=== PATIENT | male | born 1995 | race Caucasian/White ===

== ENCOUNTER 2023-04-13 15:07 | Observation (INO) ==
--- NOTE | 2023-04-13 15:43 | ED Triage Note ---
Date of Service April 13, 2023 Provider in Triage Author: Paz Box History of Present Illness This patient was briefly evaluated while in triage. An abbreviated physical exam was performed. This patient is a 27-year-old male who presents to the ED for evaluation of unusual fatigue and dizziness that started this morning. He has a history of HOCM. Denies other symptoms, just feeling fatigued and had an episode of feeling a bit short of breath at work. Physical Exam VITALS: Vitals are noted on the nurse's note and reviewed by myself. GENERAL: This is a 27-year-old male, in no acute distress, sitting upright in a chair in triage with his eyes closed. SKIN: The skin was without rashes. HEART: Regular rate and rhythm without murmurs gallops or rubs. LUNGS: Clear to auscultation bilaterally without wheezes, rales or rhonchi. NEURO: Patient was alert and oriented to person place and time. Initial orders for labs and / or imaging were placed and patient was placed in the waiting area until a bed is available. Please see further documentation for the full ED course. MDM / Impression Impression Impression: Chest pain, Acute dyspnea, Non-ST elevation [place] (NSTEMI)
[2023-04-13 16:34] LABS: Influenza A virus by PCR Negative (Neg); Influenza B virus by PCR Negative (Neg); RSV by PCR Negative (Neg); SARS CoV2 RNA(COVID-19) Ceph NEGATIVE (Negative)
--- NOTE | 2023-04-13 16:36 | XRay Report ---
SINGLE VIEW CHEST CLINICAL HISTORY: Fatigue. Dyspnea. FINDINGS: A PA chest radiograph is obtained. No prior studies are available for comparison at the anival e of dictation. A single lead cardiac AICD is in place. The cardiomediastinal silhouette is top evelyn l for projection. The lungs and pleural spaces are clear. No pneumothorax is seen. The bony thorax is grossly intact. IMPRESSION: No active disease in the chest. ACT 112: Negative or not required by law. Electronically signed by: Roberto Dangelo M.D. 04/13/2023 4:34 PM
[2023-04-13 18:52] LABS: Basophils # (auto) 0.04 K/uL (0.00-0.20); Basophils % (auto) 0.5 %; Eosinophils # (auto) 0.17 K/uL (0.00-0.50); Eosinophils % (auto) 1.9 %; Hematocrit (blood only) 43.7 % (42.0-52.0); Immature Granulocytes # (auto) 0.05 K/uL (0.01-0.20); Immature Granulocytes % (auto) 0.6 %; Lymphocytes # (auto) 2.58 K/uL (1.20-3.40); Lymphocytes % (auto) 29.4 %; Mean Corpuscular Hemoglobin 27.9 pg (25.0-34.0); Mean Corpuscular Hgb Conc 34.3 g/dL (32.0-36.0); Mean Corpuscular Volume 81.2 fL (80.0-100.0); Mean Platelet Volume 10.3 fL (9.4-12.4); Monocytes % (auto) 6.8 %; Neutrophils # (auto) 5.35 K/uL (1.40-6.50); Neutrophils % (auto) 60.8 %; Platelet Count 269 K/uL (130-400); RDW Coefficient of Variation 14.5 % (11.5-14.5); RDW Standard Deviation 42.4 fL (36.4-46.3); Red Blood Count 5.38 M/uL (4.70-6.10); White Blood Count 8.79 K/ul (4.8-10.8)
[2023-04-13 19:08] LABS: Albumin Globulin Ratio 1.2 (0.9-2); Albumin Level 4.3 gm/dl (3.4-5.0); BUN Creatinine Ratio 14.9 (10-20); Bilirubin,Total 0.5 mg/dl (0.2-1.0); Calcium 9.4 mg/dl (8.6-10.3); Creatinine Clr Calc Pharmacy 182.8 ml/min; Est GFR (African American) 126.5 ml/min; Est GFR (Non-African American) 109.1 ml/min; Globulin 3.6 gm/dl (2.5-4.0); Potassium 4.5 mmol/L (3.5-5.1); Total Protein 7.9 gm/dl (6.0-8.3)
[2023-04-13 19:25] LABS: Troponin I High Sensitivity 204.8 pg/ml (0-20)
[2023-04-13] MEDS ORDERED: ASPIRIN CHEW 324 MG PO STA (19:30)
--- NOTE | 2023-04-13 19:47 | Emergency Department Note ---
Impression & Plan Chest pain, Acute dyspnea, Non-ST elevation [place] (NSTEMI) ED Provider Note HISTORY OF PRESENT ILLNESS: Patient is a 27-year-old male presenting with lightheadedness, shortness of breath and chest pain. Patient reports he was at work earlier today when he started feeling lightheaded like he was going to pass out and very short of breath. Reports he felt like he could not catch his breath. He had diffuse anterior chest pain with the episode. He left work and went home and was feeling very rundown and fatigued. He states that he took a nap and when he woke up his chest pain had resolved. He denies ever having chest pain like this before. Denies any fevers at home. Denies any cough or recent sick contact exposures. Denies any DVT or PE history. He has a previous history of cardiomyopathy. Patient is originally from [facility] and had followed with a neonatal nurse in that area before moving to [place]. He is currently chest pain-free on my assessment in the emergency department. ROS: as above PHYSICAL EXAM: Constitutional: Patient appears in no acute distress. HENT: Head: Normocephalic and atraumatic. Eyes: EOMI, PERRL Mouth/Throat: Mucous membranes moist. Neck: Trachea midline. Neck supple. Cardiovascular: RRR, No murmurs, rubs or gallops. Intact distal pulses. Pulmonary/Chest: No respiratory distress. Breath sounds clear and equal bilaterally. No wheezes or rales Abdominal: Abdomen soft, no tenderness, rebound or guarding. Musculoskeletal: No edema, tenderness or deformity noted. Skin: Warm and dry. No rash, erythema, pallor or cyanosis Psychiatric: Appropriate mood and affect for situation. Neurological: Alert and keenly responsive. CN II-XII grossly intact, moving all extremities equally and fully. MDM: - Vitals signs stable - History obtained via patient. Patient presents with fatigue, shortness of breath and chest pain. Patient reports he was feeling very rundown earlier today and at work had an episode of lightheadedness and shortness of breath. He had diffuse anterior chest pain described as a pressure sensation. Denies any DVT or PE history. He is not on any anticoagulation. Has a previous history of cardiomyopathy and follows with a neonatal nurse outside of the area. Chest pain- free on my assessment. - Chronic conditions affecting care: Cardiomyopathy - Differential diagnoses include, but are not limited to: Acute coronary syndrome; pulmonary embolism; dissection; tension pneumothorax; esophageal rupture; pneumonia - Order placed for continuous cardiac monitoring. At this time, monitor showed rate of 70 bpm with normal sinus rhythm, per my interpretation. - External medical records reviewed. - EKG interpreted by myself showed normal sinus rhythm. Rate 61. QTc 432. No acute ischemic changes. Noted to have T-wave inversions in leads I and aVL - Laboratory workup interpreted by myself showed normal WBC; stable electrolytes; elevated troponin (204.8) - CXR negative for pneumonia, per my interpretation - COVID/flu/RSV negative - Patient given 324 mg PO aspirin in ER. - Discussion was had with day care home provider about patient's case and need for admission - Hospitalist, Dr. Hubbard, consulted for admission - Patient admitted to [facility] Hospitalist service for further evaluation and management. ASSESSMENT AND PLAN: Diagnosis: chest pain; dyspnea; NSTEMI Plan: admit Past Med/Surg History Social History Smoking Status: Never smoker Preferred Language: Chilean Feels Safe at Home: Yes Results & Data (ED) Vital Signs Vital Signs - 24 hr 04/13/23 15:40 04/13/23 19:50 Temperature 36.3 C L Temperature Source Temporal Artery Scan Pulse Rate 71 64 Respiratory Rate 20 Blood Pressure 134/73 Blood Pressure Mean 93 Pulse Oximetry 96 Oxygen Delivery Method Room Air Sepsis Recent Fever Within 48 Hours No Sepsis New/Unexplained Change in Mental Status N/A Sepsis Action Taken by Nursing No Action Required Laboratory Data 04/13/23 18:32 04/13/23 18:32 Lab Results 04/13/23 04/13/23 04/13/23 Range/Units 15:44 15:45 18:32 WBC 8.79 (4.8-10.8) K/ul RBC 5.38 (4.70-6.10) M/uL Hgb 15.0 (14.0-18.0) g/dl Hct 43.7 (42.0-52.0) % MCV 81.2 (80.0-100.0) fL MCH 27.9 (25.0-34.0) pg MCHC 34.3 (32.0-36.0) g/dL RDW Std Deviation 42.4 (36.4-46.3) fL RDW Coeff of Melecio 14.5 (11.5-14.5) % Plt Count 269 (130-400) K/uL MPV 10.3 (9.4-12.4) fL Immature Gran % (Auto) 0.6 % Neut % (Auto) 60.8 % Lymph % (Auto) 29.4 % Hodgeman % (Auto) 6.8 % Eos % (Auto) 1.9 % Baso % (Auto) 0.5 % Neut # (Auto) 5.35 (1.40-6.50) K/uL Lymph # (Auto) 2.58 (1.20-3.40) K/uL Hodgeman # (Auto) 0.60 H (0.11-0.59) K/uL Eos # (Auto) 0.17 (0.00-0.50) K/uL Baso # (Auto) 0.04 (0.00-0.20) K/uL Immature Gran # (Auto) 0.05 (0.01-0.20) K/uL Sodium 138 (136-145) mmol/L Potassium 4.5 (3.5-5.1) mmol/L Chloride 104 (98-107) mmol/L Carbon Dioxide 28 (21-32) mmol/L Anion Gap 6 (3-11) BUN 14 (6-23) mg/dl Creatinine 0.94 (0.6-1.4) mg/dl Est Cr Clr Drug Dosing 182.8 ml/min Est GFR ( Amer) 126.5 ml/min Est GFR (Non-Af Amer) 109.1 ml/min BUN/Creatinine Ratio 14.9 (10-20) Glucose 81 (70-99(Fasting)) mg/dl POC Glucose 105 H (70-99) mg/dl Calcium 9.4 (8.6-10.3) mg/dl Total Bilirubin 0.5 (0.2-1.0) mg/dl AST 36 (13-39) U/L ALT 62 H (7-52) U/L Alkaline Phosphatase 80 (34-104) U/L Troponin I High Sens 204.8 H* (0-20) pg/ml Total Protein 7.9 (6.0-8.3) gm/dl Albumin 4.3 (3.4-5.0) gm/dl Globulin 3.6 (2.5-4.0) gm/dl Albumin/Globulin Ratio 1.2 (0.9-2) SARS-CoV-2 (PCR) NEGATIVE (Negative) Influenza Type A (PCR) Negative (Neg) Influenza Type B (PCR) Negative (Neg) RSV (RT-PCR) Negative (Neg) Administered Medications Discontinued Medications Aspirin (Aspirin Chew 324 Mg) 324 mg PO NOW STA Stop: 04/13/23 19:31 Last Admin: 04/13/23 19:43 Dose: 324 mg Documented By: GGG Imaging Data Radiologist's Impression: Chest X-Ray 04/13/23 15:45 SINGLE VIEW CHEST CLINICAL HISTORY: Fatigue. Dyspnea. FINDINGS: A PA chest radiograph is obtained. No prior studies are available for comparison at the time of dictation. A single lead cardiac AICD is in place. The cardiomediastinal silhouette is top normal for projection. The lungs and pleural spaces are clear. No pneumothorax is seen. The bony thorax is grossly intact. IMPRESSION: No active disease in the chest. ACT 112: Negative or not required by law. Electronically signed by: Roberto Dangelo M.D. 04/13/2023 4:34 PM Discharge Plan Visit Data Chief Complaint: Shortness of Breath/Dyspnea Stated Complaint: SOB, DIZZINESS, FATIGUE, CARDIAC HISTORY ED Provider: Nay Vilchis Discharge Problem: Chest pain, Acute dyspnea, Non-ST elevation [place] (NSTEMI) Forms Stand Alone Forms: My [facility] Referrals Referrals: Luis Sharp DO [Primary Care Provider] -
--- NOTE | 2023-04-13 21:16 | History & Physical Report ---
Date of Service April 13, 2023 Assessment & Plan (1) Chest pain: Plan: 27yo Male with PMH cardiomyopathy ICD and pacer placement here for concern chest pain. Chest pain - resolved -with history cardiomyopathy -follows [facility] [phone] -EKG NSR -CXR wnl -WBC wnl -biofire pending -trop elevated 204.8 downtrending -admit to med/tele obs -ordered echo Gout -continue allopurinol Depression/Anxiety -continue celexa FENa: heart healthy Code Status: Full DVT PPX: ambulatory Dispo: med/tele obs Inocencia White D.O. PGY 3, FCM (2) Cardiomyopathy: History of Present Illness Primary Care Provider: Luis Sharp, 27yo Male with PMH cardiomyopathy ICD and pacer placement here for concern chest pain. Patient states at noon today he developed some chest pain and lightheadedness, SOB, went to ED around 2-3pm. While in ED all his symptoms resolved. In ED received aspirin 324mg. Patient denies any fever chills nausea vomiting diarrhea constipation pain elsewhere. Patient follows with [facility] cardiology Dr. Hernandez phone number [phone]. States his last echo was over a year ago, usually sees electronic assembler group leader every 6 months because he is asymptomatic. Patient denies alcohol tobacco use. He has trialed amiodarone in the past however develops hypotension bradycardia does not tolerate well. PSH: appendicectomy, tonsillectomy Allergies Allergy/AdvReac Type Severity Reaction Status Date / Time No Known Allergies Allergy Unverified 04/13/23 23:21 Home Medications Medication Instructions Recorded Confirmed Type allopurinol 300 mg tablet 300 mg PO DAILY 04/13/23 04/13/23 History citalopram 40 mg tablet 40 mg PO DAILY 04/13/23 04/13/23 History ergocalciferol (vitamin D2) 1,250 1,250 mcg PO 2XWK 04/13/23 04/13/23 History mcg (50,000 unit) capsule Past Med/Surg History Social History Smoking Status: Never smoker Hx Alcohol Use: No Hx Substance Use: No Preferred Language: Montserratian Communication Ability: Effective Wire Border Assembler Required: No Beliefs That Will Affect Care: None Current Living Situation: Family Other Information That Helps Us Care for You: No Feels Safe at Home: Yes Safety Concerns: Feels Safe At This Time Assistive Devices: None Physical Exam Constitutional: well developed, well nourished and + morbidly obese Eyes: PERRL, conjunctivae normal, anicteric sclerae ENMT: external ear and nose normal, oropharynx normal Neck: trachea midline, no thyromegaly Respiratory: normal respiratory effort, lungs clear to auscultation Cardiovascular: Rate/Rhythm: regular rate and regular rhythm Gastrointestinal (Abdomen): normal bowel sounds, soft, nontender, no hepatosplenomegaly Skin: no rashes, warm and dry Results & Data Results & Data Vital Signs (Past 12 Hours) Vital Signs Temp Pulse Resp BP Pulse Ox O2 Del Method 04/13/23 19:50 64 04/13/23 15:40 36.3 C L 71 20 134/73 96 Room Air Supervising Physician Co-Signing Physician Notes Patient seen and examined, chart reviewed, case discussed with Dr. White and I agree with the assessment and plan as above. In brief, patient is a 27yo male with history of HoCM s/p AICD placement in 2011 for primary prevention of SCD, history of viral cardiomyopathy in 2016. He follows still with his Industrial Cleaning Technician in [place] and has not established care in the [facility] as of yet. Patient had a brief episode of chest pain and shortness of breath this afternoon while at work. Symptoms lasted appx 1 hour. Presently without chest pain. Feels mostly normal. No recent illness On exam he is afebrile, HD stable, NAD Skin - no rash HEENT - MMM, neck supple, no JVD Heart - +S1/S2, regular, no m/r/g Lungs - CTA Abd - soft, NT/ND Ext - warm, well perfused, no edema Labs and images reviewed Trop 204 --> 194 Assessment/Plan 27yo male with history of HoCM with AICD in place presenting with episode of chest pain. Mildly elevated troponin on arrival, peaked and is now downtrending. -Observation to medical with telemetry -Check 2D echo -Cardiology consultation pending echo results. Patient should establish with a Industrial Cleaning Technician here. Will request records from Dr. Hernandez in [place] -Remainder of plan as above Resident Activity Tracking Resident Involvement: Resident Care Provided Care Provided: Adult [facility] Medicine
[2023-04-13 22:00] LABS: Adenovirus PCR Not Detected (NotDetected); Bordetella parapertussis PCR Not Detected (NotDetected); Bordetella pertussis PCR Not Detected (NotDetected); Chlamydia pneumoniae PCR Not Detected (NotDetected); Coronavirus 229E PCR Not Detected (NotDetected); Coronavirus CoV-2 (COVID19)PCR Not Detected (NotDetected); Coronavirus HKU1 PCR Not Detected (NotDetected); Coronavirus NL63 PCR Not Detected (NotDetected); Coronavirus OC43PCR Not Detected (NotDetected); Human Metapneumovirus PCR Not Detected (NotDetected); Influenza A PCR Not Detected (NotDetected); Influenza B PCR Not Detected (NotDetected); Mycoplasma pneumoniae PCR Not Detected (NotDetected); Parainfluenza Virus 1 PCR Not Detected (NotDetected); Parainfluenza Virus 2 PCR Not Detected (NotDetected); Parainfluenza Virus 3 PCR Not Detected (NotDetected); Parainfluenza Virus 4 PCR Not Detected (NotDetected); Respiratory Syncytial VirusPCR Not Detected (NotDetected); Rhinovirus/Enterovirus PCR Not Detected (NotDetected)
[2023-04-13] MEDS ORDERED: ACETAMINOPHEN 325 MG TAB PO PRN (23:11)
--- NOTE | 2023-04-14 01:47 | Billing Data ---
Date of Service April 13, 2023 Coding Level of Care Code 18020 INT INP/OBS CARE
--- NOTE | 2023-04-14 07:33 | Hospitalist Progress Note ---
Date of Service April 14, 2023 Assessment & Plan (1) Chest pain: Plan: 27yo Male with PMH cardiomyopathy ICD and pacer placement here for concern chest pain. Chest pain - resolved-with history cardiomyopathy -follows [facility] [phone] -EKG diffuse t wave inversions consistent with diagnosis of hokum -CXR wnl-WBC wnl -biofire negtive -trop elevated 204.8 -194 with flat trend Echo hypertensive cardiomyopathy is seen Patient plans on following [facility] cardiology I contacted Dr. Miguel he will see the patient in consultation will maintain the patient on telemetry monitoring possible plans for device manipulation plus minus starting antiarrhythmic therapy Gout -continue allopurinol Depression/Anxiety -continue celexa (2) Cardiomyopathy: Admission and Anticipated Discharge Date Admission Date: April 13, 2023 Subjective Patient was without symptoms at this time as mentioned cardiology reported a 5 beat run of V. tach. Patient's device was interrogated without any recorded discharges or arrhythmias however his threshold was 200 bpm and his recorded 5 beat run of V. tach was around 150. Subsequently cardiology plans to amend his settings of his AICD and consideration of antiarrhythmic therapy although there is some description from the patient that he had failed amiodarone or something similar to that in the past Physical Exam Physical Exam: Awake alert and appropriate No reproducible chest wall discomfort Card exam is regular I cannot hear any murmurs lungs are clear without wheezes or crackles Extremities are without edema Results & Data Results & Data Vital Signs (Past 12 Hours) Vital Signs Temp Pulse Pulse Resp BP Pulse Ox Pulse Ox 04/14/23 05:31 67 20 107/63 95 04/14/23 03:00 62 19 96 04/13/23 23:38 98.2 F 63 20 132/63 93 04/13/23 23:23 66 20 115/54 L 95 04/13/23 23:23 93 04/13/23 23:03 66 18 115/54 L 93 04/13/23 21:10 64 19 110/55 L 96 04/13/23 21:09 99 04/13/23 19:50 64 O2 Del Method O2 Del Method 04/14/23 05:31 Room Air 04/14/23 03:00 Room Air 04/13/23 23:38 Room Air 04/13/23 23:23 Room Air 04/13/23 23:23 Room Air 04/13/23 23:03 Room Air 04/13/23 21:10 Room Air 04/13/23 21:09 Room Air 04/13/23 19:50 Laboratory Results Reviewed CBC Reviewed chemistry Personally spoke with [employer] abrasives sales representative who interrogated pacemaker Indicated with Dr. Miguel regarding new consult Personally spoke with Dr. Medina regarding interpretation of echocardiogram PG Care Time/CCT Total # of Minutes Spent Total Time Spent with Patient: Total time spent is greater than 50% in coordination of care (as documented) at patient's floor/unit and/or counseling patient: Coding Level of Care Code 62236 SUB INP/OBS CARE 2/35MIN Diagnoses Chest pain R07.9 Cardiomyopathy I42.9
--- NOTE | 2023-04-14 08:46 | Electrocardiogram Report ---
Test Reason : Blood Pressure : / mmHG Vent. Rate : 065 BPM Atrial Rate : 065 BPM P-R Int : 178 ms QRS Dur : 100 ms QT Int : 416 ms P-R-T Axes : 054 095 119 degrees QTc Int : 432 ms Normal sinus rhythm Possible Left atrial enlargement Rightward axis Incomplete right bundle branch block T wave abnormality, consider anterolateral ischemia Abnormal ECG No previous ECGs available Confirmed by Boo Medina ([id number]) on 04/14/2023 8:46:37 AM Referred By: REFERRED SELF Confirmed By:Harlan Medina
[2023-04-14 09:04] LABS: Albumin Globulin Ratio 1.2 (0.9-2); BUN Creatinine Ratio 16.3 (10-20); Bilirubin,Total 0.7 mg/dl (0.2-1.0); Calcium 9.4 mg/dl (8.6-10.3); Creatinine Clr Calc Pharmacy 215.1 ml/min; Est GFR (African American) 139.9 ml/min; Est GFR (Non-African American) 120.7 ml/min; Globulin 3.3 gm/dl (2.5-4.0); Potassium 4.3 mmol/L (3.5-5.1); Total Protein 7.3 gm/dl (6.0-8.3)
[2023-04-14 09:11] LABS: Troponin I High Sensitivity 207.1 pg/ml (0-20)
[2023-04-14] MEDS: CITALOPRAM 40 MG TAB PO SCH (09:44)
[2023-04-14] MEDS: allopurinoL 300 MG TAB PO SCH (09:44)
--- NOTE | 2023-04-14 10:33 | XCELERA ---
[id number]
--- NOTE | 2023-04-14 12:16 | Cardiology Consultation ---
Date of Consultation April 14, 2023 Assessment & Plan (1) Near syncope: (2) NSVT (nonsustained ventricular tachycardia): (3) Hypertrophic cardiomyopathy: Plan -27-year-old male with a known history of hypertrophic cardiomyopathy. He has previously followed with [facility] in [place], [place] and with electrophysiology at the [facility]. -Patient presents after an episode of abrupt onset lightheadedness and near syncope with associated weakness, difficulty breathing and chest discomfort. EKG reveals anterolateral T wave inversions which are compatible with his known diagnosis of hypertrophic cardiomyopathy, and per review of available records, EKG is similar to the description of his previous tracing dating back to 2019 performed in [place]. -The patient has hat high sensitivity troponin levels x 3 which are elevated with value of around 200 PG per mL with a flat trend. -Echocardiogram reveals severe asymmetric septal hypertrophy. Septal diameter of 2.7 cm on this echocardiogram, however per review of records, his septum has previously been measured to be 3.5 cm. -His symptom is concerning for having had an arrhythmia event. He describes having been on a medication in the past but was discontinued as he was getting dizzy and his heart rate was "too slow". -His single-chamber AICD was interrogated with the help of the [employer] leather goods sales representative. General longevity stable at 11.5 years. -The device settings allow for detection of of ventricular fibrillation with rates greater than 200 bpm. -Unless an arrhythmia event was greater than 200 bpm for greater than 4 beats in duration it would not have been detected. -We will therefore plan on altering his detections to capture events with rates as low as 130 bpm and for treatment to be enacted if rate is greater than 180 bpm. Per review of his telemetry as well as the device interrogation data, as average rate is typically in the 80s. I believe there is room for initiation of metoprolol succinate 25 mg daily. I do not think the elevation in troponin is due to an acute coronary syndrome but rather due to myocardial strain in the setting of severe left ventricular hypertrophy. -Recommend ongoing monitoring on telemetry. History of Present Illness Attending Physician: Liu Ma MD History of Present Illness Mr Serna is a 27 year male seen seen in cardiology consultation per the request of Dr Ma for the evaluation of lightheadedness, chest pain and shortness of breath. The patient has a known history of hypertrophic cardiomyopathy which she states was initially diagnosed when he was a child, perhaps at the age of 11 or 12 when he was in seventh or eighth grade. He initially underwent implantation of a single-chamber AICD with [facility] in 2011 for primary prevention of sudden cardiac . Per review of available records at the age of 11 he received 2 inappropriate AICD discharges from electromagnetic interference as he was exiting a swimming pool at a summer camp. In June, he underwent a generator change in [place]. He has otherwise followed with [facility]. In July, he moved to [place] where he lives with his mother. 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 He stated that he had lifted several TVs but nothing that felt too strenuous for him and that it was a normal day. He took his lunch break and shortly thereafter when he returned to his work at about 12 noon and he had a "wave of lightheadedness "with associated weakness, difficulty breathing, and chest discomfort that followed. His symptoms persisted especially the shortness of breath and ultimately he talked things over with his mother who presented to the emergency department with initial vital signs having taken place at 1540. At the time my assessment, the patient was feeling well. He has been admitted for almost 24 hours now so he states is difficult to merchandise flow team leader how he is feeling since he is resting. Allergies Allergy/AdvReac Type Severity Reaction Status Date / Time No Known Allergies Allergy Unverified 04/13/23 23:21 Home Medications Medication Instructions Recorded Confirmed Type allopurinol 300 mg tablet 300 mg PO DAILY 04/13/23 04/13/23 History citalopram 40 mg tablet 40 mg PO DAILY 04/13/23 04/13/23 History ergocalciferol (vitamin D2) 1,250 1,250 mcg PO 2XWK 04/13/23 04/13/23 History mcg (50,000 unit) capsule Patient History Social History Smoking Status: Never smoker Hx Alcohol Use: No Hx Substance Use: No Preferred Language: Finnish Communication Ability: Effective Slope Tender Required: No Beliefs That Will Affect Care: None Current Living Situation: Family Other Information That Helps Us Care for You: No Feels Safe at Home: Yes Safety Concerns: Feels Safe At This Time Assistive Devices: None Review of Systems Review of Systems: All systems reviewed & are unremarkable except as noted in HPI & below Physical Exam Constitutional: WD/WN, vitals as above Respiratory: normal respiratory effort, lungs clear to auscultation Cardiovascular: RRR, no murmur, no edema Chest (Breasts): Additional Comments: Left infraclavicular device pocket clean dry and intact, no erythema Gastrointestinal (Abdomen): normal bowel sounds, soft, nontender, no hepatosplenomegaly Neurologic: PERRL, EOMI, accommodation nl, no face palsy, no dysarthria Results & Data Vital Signs (Past 12 Hours) Vital Signs Temp Pulse Pulse Resp BP Pulse Ox O2 Del Method 04/14/23 11:05 36.5 C 82 18 117/64 95 Room Air 04/14/23 08:00 37 C 72 18 113/70 95 Room Air 04/14/23 07:34 62 04/14/23 05:31 67 20 107/63 95 Room Air 04/14/23 03:00 62 19 96 Room Air Laboratory Results Cardiac Enzymes 04/13/23 04/13/23 04/14/23 Range/Units 18:32 20:51 08:21 AST 36 36 (13-39) U/L Troponin I High Sens 204.8 H* 194.0 H* 207.1 H* (0-20) pg/ml CBC 04/13/23 Range/Units 18:32 WBC 8.79 (4.8-10.8) K/ul RBC 5.38 (4.70-6.10) M/uL Hgb 15.0 (14.0-18.0) g/dl Hct 43.7 (42.0-52.0) % Plt Count 269 (130-400) K/uL Neut # (Auto) 5.35 (1.40-6.50) K/uL Lymph # (Auto) 2.58 (1.20-3.40) K/uL Ness # (Auto) 0.60 H (0.11-0.59) K/uL Eos # (Auto) 0.17 (0.00-0.50) K/uL Baso # (Auto) 0.04 (0.00-0.20) K/uL Comprehensive Metabolic Panel 04/13/23 04/14/23 Range/Units 18:32 08:21 Sodium 138 137 (136-145) mmol/L Potassium 4.5 4.3 (3.5-5.1) mmol/L Chloride 104 106 (98-107) mmol/L Carbon Dioxide 28 26 (21-32) mmol/L BUN 14 13 (6-23) mg/dl Creatinine 0.94 0.80 (0.6-1.4) mg/dl Glucose 81 101 H (70-99(Fasting)) mg/dl Calcium 9.4 9.4 (8.6-10.3) mg/dl AST 36 36 (13-39) U/L ALT 62 H 61 H (7-52) U/L Alkaline Phosphatase 80 72 (34-104) U/L Total Protein 7.9 7.3 (6.0-8.3) gm/dl Albumin 4.3 4.0 (3.4-5.0) gm/dl Intake and Output 04/13/23 04/14/23 04/14/23 22:59 06:59 14:59 Intake Total 0 / 0 Balance 0 / 0 Intake: Oral 0 / 0 Other: Weight 162.3 kg 162.6 kg Weight Measurement Method Chair Scale Built in [facility] Diagnostic Findings EKG performed 04/13/2023 and interpreted independently: Sinus rhythm at 65 bpm with incomplete right bundle branch block, T wave inversions noted in the precordial leads as well as the high lateral leads I and aVL. -Although there are no prior tracings available for direct comparison. Per review of an outpatient electrophysiology progress note from [facility] on 04/05/2020 a T wave abnormality consistent with anterolateral ischemia was noted at that time, and description is similar to that which was observed this hospital stay. Echocardiogram performed this admission with images reviewed and interpreted independently: There is severe concentric hypertrophy with noted asymmetric septal hypertrophy, the septal diameter= 2.7 cm The aortic root is mildly dilated 4 cm There are no regional wall motion abnormalities, the LVEF is normal at 55 to 60% No left ventricular outflow tract gradient was detected at rest
[2023-04-14] MEDS: METOPROLOL SUCC 25MG EXT REL TAB PO SCH (14:15)
[2023-04-15] MEDS: allopurinoL 300 MG TAB PO SCH (08:43)
[2023-04-15] MEDS: CITALOPRAM 40 MG TAB PO SCH (08:43)
[2023-04-15] MEDS: METOPROLOL SUCC 25MG EXT REL TAB PO SCH (08:44)
--- NOTE | 2023-04-15 12:46 | Cardiology Progress Note ---
Date of Service April 15, 2023 Assessment & Plan (1) Near syncope: (2) NSVT (nonsustained ventricular tachycardia): (3) Hypertrophic cardiomyopathy: Plan 27-year-old male with history of hypertrophic cardiomyopathy admitted after an episode of abrupt onset lightheadedness and near syncope with associated weakness, difficulty breathing and chest discomfort concerning for arrhythmia in the setting of poor oral intake. EKG with anterolateral T wave inversions compatible with history of hypertrophic cardiomyopathy and similar to prior per description. High sensitivity troponin mildly elevated with flat trend. Echocardiogram reveals severe asymmetric septal hypertrophy. Telemetry with occasional PVC's and very short nonsustained runs. Device interrogated and reprogrammed as below. OK for discharge Continue metoprolol succinate 25 mg/day; consider titration down the road. Resume CPAP therapy; utilize all night, every night. Zio AT post discharge Outpatient exercise stress echocardiography with full baseline resting echocardiography ? Cardiac MRI. Avoid dehydration Avoid stimulants Activity restrictions reviewed Outpatient cardiology follow-up with Dr. Coleman. Admission and Anticipated Discharge Date Admission Date: April 13, 2023 Supervising Physician Co-Signing Physician Notes 27-year-old male seen and examined at the bedside. No recurrent ventricular tachycardia overnight. Denies chest pain or shortness of breath. Mother present at bedside. Offers no additional concerns/complaints. PE: VSS. Gen:NAD, AAO x3. Overweight. Heart: Regular rhythm, normal S1-S2, 2/6 systolic ejection murmur. Lungs: Clear bilateral, no rales, rhonchi, wheeze. Extremities: No edema. A/P: Agree with PA-C evaluation, assessment and plan. Continue metoprolol succinate 25 mg daily. Consider titration in future pending clinical response and review of outpatient ICD interrogation. Resume CPAP therapy upon returning home. Outpatient baseline echo stress testing and ZIO monitor recommended. Subjective Patient seen and examined. Chart, medications, and telemetry reviewed. Mother, a nurse x 35 years, present at bedside. Patient moved to [place] approximately 8 months ago. He is studying IST at [employer] Patient with a history of HOCM status post single lead Medtronic ICD implantation with backup pacemaker set VVI 40 bpm Patient experienced an episode of abrupt onset lightheadedness and near syncope with associated weakness, difficulty breathing and chest discomfort leading to this hospitalization. - EKG revealed anterolateral T wave inversions which are compatible with his known diagnosis of hypertrophic cardiomyopathy, similar to the description of his previous tracings. - Troponin 204.8 -> 194.0 -> 207.1 pg/mL. - Echocardiogram revealed severe asymmetric septal hypertrophy. Septal diameter of 2.7 cm on this echocardiogram, however per review of records, his septum has previously been measured to be 3.5 cm. Single-chamber Medtronic ICD interrogated 04/14/2023, 11.5 years remaining longevity. The device settings allow for detection of ventricular fibrillation with rates greater than 200 bpm. Unless an arrhythmia event was greater than 200 bpm for greater than 4 beats in duration it would not have been detected. His device was reprogramming to capture events with rates as low as 130 bpm and for treatment to be enacted if rate is greater than 176 bpm. Symptom presentation concerning for arrhythmia. Mother notes previously being prescribed amiodarone and a unknown blood pressure pill that was discontinued due to hypotension Metoprolol succinate 25 mg/day prescribed this admission. Benefits, use, and risks explained. Overnight telemetry personally reviewed. Currently sinus with a heart rate of 80 bpm. Occasional PVC in singles noted. There was one three beat run noted overnight along with mild intermittent bradycardia leading to pacemaker activation and likely reflecting patient's known obstructive sleep apnea which is currently not being treated (does have a CPAP at home that is used intermittently) Review of Systems Review of Systems: Complete Review of Systems is as state above, negative, or noncontributory. Physical Exam Physical Exam: General: A&Ox3. NAD. Elevated BMI HEENT: Normocephalic. Atraumatic. Eyes: PER. Conjunctiva pink, sclera clear. Neck: No JVD. Heart: RRR. + Systolic ejection murmur. Lungs: Clear to auscultation. Abdomen: +BS. Extremities: No clubbing, cyanosis, or edema. Limited neurological examination is without focal deficits. Results & Data Vital Signs (Past 12 Hours) Vital Signs Temp Pulse Pulse Resp BP Pulse Ox O2 Del Method 04/15/23 10:50 36.4 C L 75 151/80 H 94 Room Air 04/15/23 07:31 36.3 C L 67 16 149/89 H 93 Room Air 04/15/23 07:25 63 04/15/23 02:40 36.6 C 62 18 109/68 93 Room Air Laboratory Results Intake and Output 04/14/23 04/15/23 04/15/23 22:59 06:59 14:59 Intake Total 250 / 650 400 / 650 Output Total Balance 250 / 649 399 / 649 Intake: Oral 250 / 650 400 / 650 Output: # Bowel Movements Other: Weight 161.5 kg
--- NOTE | 2023-04-15 13:03 | Discharge Summary ---
Date of Service April 15, 2023 Admission HPI Per Admitting Provider 27yo Male with PMH cardiomyopathy ICD and pacer placement here for concern chest pain. Patient states at noon today he developed some chest pain and lightheadedness, SOB, went to ED around 2-3pm. While in ED all his symptoms resolved. In ED received aspirin 324mg. Patient denies any fever chills nausea vomiting diarrhea constipation pain elsewhere. Patient follows with [facility] cardiology Dr. Hernandez phone number [phone]. States his last echo was over a year ago, usually sees impersonator character every 6 months because he is asymptomatic. Patient denies alcohol tobacco use. He has trialed amiodarone in the past however develops hypotension bradycardia does not tolerate well. PSH: appendicectomy, tonsillectomy Principal Diagnosis Hypertrophic cardiomyopathy Nonsustained VT Discharge Exam cardiac exam is regular lungs are clear baseline left eye strabismus Discharge Data Allergies Allergy/AdvReac Type Severity Reaction Status Date / Time No Known Allergies Allergy Unverified 04/13/23 23:21 Consultations 04/13/23 20:12 ED Decision to Admit Stat 04/14/23 10:40 Consult Cardiology Routine Hospital Course (1) Chest pain: 27yo Male with PMH cardiomyopathy ICD and pacer placement here for concern chest pain. Chest pain - resolved-with history cardiomyopathy -follows [facility] [phone] -EKG diffuse t wave inversions consistent with diagnosis of hokum -CXR wnl-WBC wnl -biofire negtive -trop elevated 204.8 -194 with flat trend Echo hypertensive cardiomyopathy is seen Patient plans on following [facility] cardiology, started on metoprolol xl 25 mg therapy, adjusted aicd will follow up as outpt Gout -continue allopurinol Depression/Anxiety -continue celexa (2) Cardiomyopathy: Total Time Total Time Spent Total Time Spent (In Minutes): It required greater than 30 minutes to prepare this patient for discharge. This includes to personal discussions with cardiology team Discharge Plan Discharge Items Patient Disposition: Home - Self-Care Reason For Visit: CHEST PAIN Discharge Diagnosis: hypertrophic Cardiomyopathy non sustained VT Activity: Resume your previous activity Non-emergency contact: Primary Care Provider and [employer] Operator Call non-emergency contact if: your symptoms worsen Follow-up/Referrals: Gary Coleman DO [[employer]] - Aron,Luis M., DO [Primary Care Provider] - Diet: Regular Addtl Attending Provider Instructions: Cardiology has recommended that you continue metoprolol and have made some adjustments to your defibrillator please establish care with our local cardiology team here at [facility] Cardiologists Pending Studies at Discharge: No Stand-Alone Forms: My [facility] [employer], Smoking Cessation Medications and DC Order Prescriptions: New metoprolol succinate 25 mg Tablet Extended Release 24 Hr 25 mg PO QAM Qty: 30 5RF Continued citalopram 40 mg tablet 40 mg PO DAILY allopurinol 300 mg tablet 300 mg PO DAILY ergocalciferol (vitamin D2) 1,250 mcg (50,000 unit) capsule 1,250 mcg PO 2XWK Rx Instructions: Usually mon& fri Discharge Orders: Discharge Order (Routine); Ordered 04/15/23 Ordered By: Liu Ma Admission Data Admit Date/Time: 04/13/23 21:15 Attending Provider: Liu Ma Admit Provider: Inocencia White Primary Care Provider: Luis Sharp Other Providers: Ca Hubbard; Gary Coleman Coding Level of Care Code 62447 INP/OBS DISCH >30 MIN Diagnoses Chest pain R07.9 Cardiomyopathy I42.9
== END 2023-04-15 14:35 | disposition home or self-care (01) ==
LOC: ED 15:07 → EDINP 15:07 → SUATTDRO 21:15 → 2N 23:12